=== PATIENT | male | born 1970 | race Caucasian/White ===

== ENCOUNTER → 2017-10-08 | Outpatient (CLI) | payer OTHER ==
--- NOTE | 2017-10-08 16:17 | Diagnostic Imaging Report ---
EXAMINATION: MRI of the lumbar spine without contrast HISTORY: Low back pain radiating to the lower extremity with numbness and weakness. COMPARISON: None. TECHNIQUE: Sagittal T1, T2, STIR; axial T2 and proton density. FINDINGS: It is assumed that there are 5 lumbar vertebrae. Curvature/Alignment: Normal lordosis. Vertebrae: Heterogeneous signal in the sacrum. No evidence of recent fracture, infection, or neoplasm. Conus: Normal, terminating at L1. Cauda equina: Unremarkable. Lower thoracic: Unremarkable. Paraspinal soft tissues: Subcentimeter T2 hyperintense possible cyst in the right kidney is partially visualized. Degenerative changes: L1-L2 and L2-L3 : Unremarkable. L3-L4: Mild decreased disc height and T2 signal intensity, symmetric disc bulge and mild facet arthrosis. Mild foraminal narrowing. No evidence of nerve root compression. L4-L5 and 5-S1: Unremarkable. IMPRESSION: Mild degenerative foraminal stenosis at L3-L4 without evidence of nerve root compression, otherwise unremarkable lumbar spine MRI. Signed by: Dr. Veronica Freeman M.D. on 10/08/2017 4:13 PM
== END ==
LOC: MRI 14:18
PROVIDERS: ATTEND Family Medicine
DX: S39.012D Strain of muscle, fascia and tendon of lower back, subsequent encounter (principal)
CPT/HCPCS: 72148